=== PATIENT | male | born 1990 | race Caucasian/White ===

== ENCOUNTER 2018-12-16 23:19 | Emergency (ER) | payer SELFPAY ==
[~2018-12-16] VITALS: Ht 180.3 cm; Wt 72.6 kg
[2018-12-16 23:41] VITALS: BP_SYST 136
[2018-12-17 00:19] LABS: BILIRUBIN,URINE NEGATIVE (NEGATIVE); BLOOD, URINE 3+ (NEGATIVE); CLARITY/URINE HAZY (CLEAR); COLOR,URINE YELLOW (YELLOW); GLUCOSE,URINE NEGATIVE (NEGATIVE); KETONES,URINE NEGATIVE (NEGATIVE); LEUKOCYTE ESTERASE ,URINE 3+ (NEGATIVE); NITRITE, URINE NEGATIVE (NEGATIVE); PROTEIN URINE 1+ (NEGATIVE)
[2018-12-17 00:29] LABS: RBC,URINE 20-50 /HPF (0-3); WBC,URINE >100 /HPF (0-3)
[2018-12-17 00:30] LABS: BACTERIA,URINE MODERATE /HPF (None Seen)
[2018-12-17] MEDS ORDERED: cefTRIAXone 250 MG in LIDOCAINE 1%, 20 ML MDV 0.9 ML IM ONE (00:30)
[2018-12-17] MEDS ORDERED: AZITHROMYCIN 250 MG TABLET PO ONE (00:30)
[2018-12-17 01:20] VITALS: BP_SYST 128
== END 2018-12-17 01:20 | disposition home or self-care (01) ==
LOC: SED 23:19
DX: N45.1 Epididymitis (principal); N43.3 Hydrocele, unspecified; N39.0 Urinary tract infection, site not specified; Z20.2 Contact with and (suspected) exposure to infections with a predominantly sexual mode of transmission
CPT/HCPCS: 76870; 81000; 87086; 87491; 87591; 99284; J0696; J2001; Q0144

== ENCOUNTER 2019-05-01 01:45 | Emergency (ER) | payer MEDICAID ==
[~2019-05-01] VITALS: Ht 177.8 cm; Wt 72.6 kg
[2019-05-01 01:50] VITALS: BP_SYST 144
--- NOTE | 2019-05-01 01:59 | NUR ---
Patient to ER bed 4 to gown for evaluation. Side rails up. Report given to Kerry LUZ.
--- NOTE | 2019-05-01 02:00 | NUR ---
patient BIB girlfriend with complaint of circular wounds on arms and legs x2 weeks. patient denies drug use. patient states it feels like his skin is crawling. wounds are not weeping and are not warm to the touch. patient denies itching or pain at this time.
--- NOTE | 2019-05-01 04:20 | NUR ---
ER at bedside examining patient.
[2019-05-01] MEDS ORDERED: BACITRACIN ZINC 15 GM TOPICAL OINTMENT TP ONE (04:30)
[2019-05-01] MEDS ORDERED: CEPHALEXIN 500 MG CAPSULE PO ONE (04:30)
[2019-05-01] MEDS ORDERED: BACITRACIN 1 GM OINT TP ONE ×2 (04:45→04:50)
--- NOTE | 2019-05-01 05:03 | NUR ---
Patient given written and verbal discharge instructions and verbalizes understanding. ER MD Dr. Arias discussed with patient the results and treatment provided. Patient in stable condition. ID arm band removed. Rx of keflex and bactroban given. Patient educated on pain management and to follow up with PMD. Pain Scale 0/10. Opportunity for questions provided and answered. Medication side effect fact sheet provided.
[2019-05-01 05:30] VITALS: BP_SYST 144
== END 2019-05-01 05:03 | disposition home or self-care (01) ==
LOC: SED 01:45
DX: L73.9 Follicular disorder, unspecified (principal)
CPT/HCPCS: 99283

== ENCOUNTER 2020-02-02 03:22 | Emergency (ER) | payer MEDICAID ==
[~2020-02-02] VITALS: Ht 177.8 cm; Wt 72.6 kg
[2020-02-02 04:30] VITALS: BP_SYST 125
--- NOTE | 2020-02-02 05:47 | NUR ---
Pt ambulatory to bed 3 for evaluation
--- NOTE | 2020-02-02 05:55 | NUR ---
Pt presents to the ER for R forearm pain and wrist x 2 weeks. Pt was seen at an outside ED for a lunate fracture. Pt removed splint because of unbearable pain. Denies numbness of the fingers.
--- NOTE | 2020-02-02 05:58 | NUR ---
ER at bedside examining patient.
[2020-02-02] MEDS ORDERED: IBUPROFEN 600 MG TABLET PO ONE (06:15)
[2020-02-02] MEDS ORDERED: HYDROcodone/ACETAMIN 5-325 MG TAB (NORCO/ VICODIN) PO ONE (06:15)
--- NOTE | 2020-02-02 06:30 | NUR ---
Sugar tong splint place on patient to the R arm. Used 4 in fiber glass, nicolle bandage and given sling.
--- NOTE | 2020-02-02 06:52 | NUR ---
Patient given written and verbal discharge instructions and verbalizes understanding. ER MD discussed with patient the results and treatment provided. Patient in stable Rx of Bactrim and [place] given. Patient educated on pain management and to follow up with PMD. Pain Scale 5/10. Opportunity for questions provided and answered. Medication side effect fact sheet provided.
[2020-02-02 06:53] VITALS: BP_SYST 125
== END 2020-02-02 06:53 | disposition home or self-care (01) ==
LOC: SED 03:22
DX: S62.316A Displaced fracture of base of fifth metacarpal bone, right hand, initial encounter for closed fracture (principal); S52.501A Unspecified fracture of the lower end of right radius, initial encounter for closed fracture; Z48.00 Encounter for change or removal of nonsurgical wound dressing; X58.XXXA Exposure to other specified factors, initial encounter; Y93.89 Activity, other specified; Y92.89 Other specified places as the place of occurrence of the external cause; Y99.8 Other external cause status
CPT/HCPCS: 73090; 99284

== ENCOUNTER 2021-11-07 16:56 | Emergency (ER) | payer MEDICAID ==
[~2021-11-07] VITALS: Ht 177.8 cm; Wt 68.0 kg
[2021-11-07 17:20] VITALS: BP_SYST 141
[2021-11-07] MEDS ORDERED: cefTRIAXone 1 GM in LIDOCAINE 1%, 20 ML MDV 2.1 ML IM ONE (17:30)
[2021-11-07] MEDS ORDERED: DIPH-TET-PERTUS Vaccine 0.5 ML VIAL (ADACEL) I.M. ONE (17:30)
[2021-11-07] MEDS ORDERED: NAPR-690 PO (18:04)
[2021-11-07] MEDS ORDERED: CEPH-548 PO (18:04)
[2021-11-07] MEDS ORDERED: KETOROLAC TROMETHAMINE 60 MG/2 ML VIAL IM ONE (18:15)
[2021-11-07] MEDS ORDERED: BACITRACIN 1 GM OINT TP ONE ×3 (18:45→19:01)
[2021-11-07 19:06] VITALS: BP_SYST 131
== END 2021-11-07 19:06 | disposition home or self-care (01) ==
LOC: SED 16:56
DX: T25.212A Burn of second degree of left ankle, initial encounter (principal); T25.211A Burn of second degree of right ankle, initial encounter; W86.8XXA Exposure to other electric current, initial encounter; Y93.89 Activity, other specified; Y92.89 Other specified places as the place of occurrence of the external cause; Y99.0 Civilian activity done for income or pay
CPT/HCPCS: 90471; 90715; 96372; 99284; J0696; J1885; J2001

== ENCOUNTER 2023-04-03 00:31 | Emergency (ER) | payer MEDICAID ==
[~2023-04-03] VITALS: Ht 177.8 cm; Wt 81.6 kg
[~2023-04-03 00:31] MED LIST: CEPH-548 PO; NAPR-690 PO
[2023-04-03 00:35] VITALS: BP_SYST 132; PULSE 94; RESP 16; TEMP 97.9; O2SAT 99
[2023-04-03] MEDS ORDERED: PENI250T2 PO (01:09)
[2023-04-03] MEDS ORDERED: NAPR-1172 PO (01:09)
[2023-04-03] MEDS ORDERED: IBUPROFEN 600 MG TABLET PO ONE (01:15)
[2023-04-03 01:33] VITALS: BP_SYST 130; PULSE 89; RESP 17; TEMP 98.1; O2SAT 98
== END 2023-04-03 01:33 | disposition home or self-care (01) ==
LOC: SED 00:31
DX: K08.89 Other specified disorders of teeth and supporting structures (principal); Z79.899 Other long term (current) drug therapy
CPT/HCPCS: 36415; 86592; 99283